=== PATIENT | male | born 1995 | race Caucasian/White ===

== ENCOUNTER 2018-03-27 13:47 | Emergency (ER) | payer BC ==
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
[2018-03-27 16:46] VITALS: BP 112/61
== END 2018-03-27 16:45 | disposition home or self-care (01) ==
DX: S32.592A Other specified fracture of left pubis, initial encounter for closed fracture (principal); X36.1XXA Avalanche, landslide, or mudslide, initial encounter; Y93.31 Activity, mountain climbing, rock climbing and wall climbing; Y92.828 Other wilderness area as the place of occurrence of the external cause